=== PATIENT | female | born 1955 | race African-American/Black ===

== ENCOUNTER → 2016-09-28 | Outpatient (CLI) | payer MEDICARE, OTHER ==
[~2016-09-28] MED LIST: ATARAX25 MG PO; CELEXA 20MG20 MG/TAB PO; CELEXA20 MG PO; CEPHALEXIN500 M1 PO; DOXYCYCLINE 10100 MG PO; EUCERIN1 CRE TP; FLEXERIL 1010 MG/TAB PO; GLUCOPHAGE1000 MG PO; LEXAPRO20 MG PO; METFORMIN1000 MG PO; NAPROXEN 3375 MG/TAB PO; NASONEX SPRAY17 GM NS; NEURONTIN300 MG/CAP PO; NORCO 325 MG-51 TAB PO; PREDNISONE20 MG PO; PROVENTIL0.09 MG/A1 IH; RT ADVAIR 128 DISKUS IH; SINGULAIR 110 MG/TAB PO; SINGULAIR10 MG PO; ST. JOSEPH81 M2 PO; VENTOLIN0.09 MG IH; VITAMIN D31000 IU PO; VITAMIN D32000 IU PO; ZESTRIL 20MG TA20 MG PO; ZYRTEC 10MG; ZYRTEC 10MG10 MG PO; ZYRTEC10 M1 PO
== END ==
LOC: COL.RAD 11:42
DX: N95.0 Postmenopausal bleeding (principal)

== ENCOUNTER 2018-02-20 19:24 | Emergency (ER) | payer OTHER, MEDICARE ==
[~2018-02-20] VITALS: Ht 165.1 cm; Wt 128.2 kg
[2018-02-20 19:31] VITALS: TEMP 98.7
[2018-02-20 20:17] LABS: BASO % 0.2 % (0.0-2.0); EOS # 0.1 (0.0-0.7); EOS % 0.7 % (0-4.0); GRAN # 6.2 (1.4-6.5); HEMOGLOBIN 10.5 g/dl (12.5-16.0); LYMPH # 1.9 (1.2-3.4); LYMPH % 21.7 % (20.0-51.0); MEAN CELL VOLUME 79 fl (80.0-100.0); MEAN CORPUSCULAR HEMOGLOBIN 23 pg (27.0-31.0); MEAN CORPUSCULAR HGB CONC 30 g/dl (33.0-37.0); MONO # 0.6 (0.1-0.6); MONO % 7.1 % (1.7-9.3); PLATELET COUNT 342 K/mm3 (130-400); RED BLOOD COUNT 4.51 M/mm3 (4.10-5.30); REDCELL DISTRIBUTION WIDTH-CV 15.5 % (11.5-14.5)
[2018-02-20 20:20] LABS: HEMATOCRIT 35.4 % (37.0-47.0)
[2018-02-20 20:28] LABS: ALBUMIN 3.8 gm/dL (3.5-5.0); BILIRUBIN,TOTAL 0.1 mg/dL (0.0-1.0); CREATININE, serum 0.99 mg/dL (0.52-1.25); POTASSIUM 3.7 mmol/L (3.4-5.0); TOTAL PROTEIN 7.3 gm/dL (6.4-8.2)
[2018-02-20 22:02] LABS: COLLECTION METHOD CLEAN CATCH
[2018-02-20 22:10] LABS: MUCOUS Present /lpf; PH 5 (5-8); URINE APPEARANCE Clear; URINE BACTERIA Moderate /hpf; URINE BILIRUBIN Negative (NEGATIVE); URINE BLOOD Negative (NEGATIVE); URINE COLOR Yellow; URINE GLUCOSE Negative (NEGATIVE); URINE KETONE Negative (NEGATIVE); URINE LEUKOCYTE ESTERASE 2+ (NEGATIVE); URINE NITRATE Negative (NEGATIVE); URINE PROTEIN(semi-quant) Negative (NEGATIVE); URINE RBC 0-2 /hpf; URINE UROBILINOGEN Negative (NEGATIVE)
[2018-02-20] MEDS ORDERED: ZOFRAN ODT4 MG PO ×2 (22:16→22:39)
[2018-02-20] MEDS ORDERED: NORCO 325 MG-51 TAB PO (22:16)
[2018-02-20 22:19] VITALS: BP 136/80; PULSE 89
[2018-02-20] MEDS ORDERED: CIPRO 500MG TA500 MG PO ×2 (22:24→22:39)
== END 2018-02-20 22:49 | disposition home or self-care (01) ==
LOC: COL.ER 19:24
PROVIDERS: Physician Assistant
DX: S00.93XA Contusion of unspecified part of head, initial encounter (principal); S30.0XXA Contusion of lower back and pelvis, initial encounter; D64.9 Anemia, unspecified; N39.0 Urinary tract infection, site not specified; E11.9 Type 2 diabetes mellitus without complications; I10 Essential (primary) hypertension; J45.909 Unspecified asthma, uncomplicated; F32.9 Major depressive disorder, single episode, unspecified; F41.9 Anxiety disorder, unspecified; Z79.84 Long term (current) use of oral hypoglycemic drugs; Z79.51 Long term (current) use of inhaled steroids; V89.2XXA Person injured in unspecified motor-vehicle accident, traffic, initial encounter
CPT/HCPCS: J2060; J2405; J3010

== ENCOUNTER 2018-07-14 11:15 | Outpatient (RCR) | payer MEDICARE, OTHER ==
[~2018-07-14 11:15] MED LIST changes: +CIPRO 500MG TA500 MG PO; +ZOFRAN ODT4 MG PO
== END 2018-07-31 | disposition home or self-care (01) ==
LOC: WSPT
DX: M17.0 Bilateral primary osteoarthritis of knee (principal); M51.36 Other intervertebral disc degeneration, lumbar region
CPT/HCPCS: G8978-GP; G8979-GP

== ENCOUNTER 2018-08-18 16:30 | Outpatient (RCR) | payer MEDICARE, OTHER | END 2018-10-10 14:50 | disposition home or self-care (01) | LOC: WSPT 16:30 | DX: M17.0 Bilateral primary osteoarthritis of knee (principal); M53.9 Dorsopathy, unspecified ==

== ENCOUNTER 2018-10-07 11:48 | Inpatient (IN) | payer MEDICARE, OTHER ==
[~2018-10-07] VITALS: Ht 165.1 cm; Wt 123.3 kg
[2018-11-23] VITALS (10 sets, daily range): BP systolic 85–125; BP diastolic 44–65; PULSE 60–79; TEMP 97–98.7
[2018-11-23] MEDS ORDERED: CELEXA 20MG20 MG/TAB PO (06:16)
[2018-11-23] MEDS ORDERED: COLACE 100100 MG/CAP PO (06:17)
[2018-11-23] MEDS ORDERED: FLECTOR1.3% (06:18)
[2018-11-23] MEDS ORDERED: CARDIZEM CD 12120 MG PO (06:18)
[2018-11-23] MEDS ORDERED: MELAT3MGTAB PO (06:19)
[2018-11-23] MEDS ORDERED: MICARDIS20 MG PO (06:20)
[2018-11-23] MEDS ORDERED: INDERAL 10MG10 MG PO (06:22)
[2018-11-23] MEDS ORDERED: SINGULAIR 110 MG/TAB PO (06:22)
[2018-11-23] MEDS ORDERED: SYNTHROID0.05 MG/TA PO (06:23)
[2018-11-23] MEDS ORDERED: RESTORIL30 MG PO (06:24)
[2018-11-23] MEDS ORDERED: TIAZAC120 MG PO (06:25)
[2018-11-23] MEDS ORDERED: VOLTAREN GEL 1%1 TU TP (06:26)
[2018-11-23] MEDS ORDERED: ZANTAC 150MG T150 MG PO (06:27)
--- NOTE | 2018-11-23 11:25 | NUR ---
PT TO ROOM 328 VIA BED WITH BERNIE HULL BUILDER GIVING REPORT @1100. PT IS A/OX3 LUNGS CLEAR, BOWEL SOUNDS PRESENT. LEFT KNEE CDI WITH OCCLUSIVE DRESSING, CRYO CUFF AND CPM INPLACE OVER INCISION. PT HAS NO FEELING OR MOTOR CONTROLL BELOW HIPS AT THIS TIME. IV TO PUMP, SCDS AND TEDS BILATERALLY. VSS, FAMILY AT BEDSIDE.
--- NOTE | 2018-11-23 11:39 | NUR ---
PT LOOKING AT MENUE AND ORDERING LUNCH
--- NOTE | 2018-11-23 11:49 | NUR ---
DREAD met with patient and family about discharge planning. Patient reports she plans to return home and receive outpatiet PT at the [facility]. Patient's PCP is Dr Borjas on [address] and patient obtains prescriptions from [facility] or [address]. Patient has a walker for ambulations and a CPAP but does not use any other DME and she does not have home health services. Patient reports she does have a DPOA. SW does not anticipate any discharge needs.
--- NOTE | 2018-11-23 20:20 | NUR ---
Shift assessment complete. Pt resting in bed, awake, a&o, cooperative c cares. Pt c/o continued "bad" pain to L knee, rated "8/10"; PRN Lawrence admin per pt req. Pt also c/o brief period of nausea et scant amount of vomit, denies nausea at this time et denies need for antiemetic. Pt denies any other c/o. IV patent. LTK site noted, dressing per ortho C/D/I. Cryocuff et CPM in place. Vidal to DD. Pt denies further needs. Call light in reach, multiple family at bedside. Will monitor.
[2018-11-24 04:13] VITALS: BP 98/52; PULSE 68; TEMP 98.4
--- NOTE | 2018-11-24 05:29 | NUR ---
Pt resting in bed, condition unchanged. Pt has rested int c few needs. Cryocuff et CPM remain in place. Pain moderately well controlled c frequent pain vp emerging media upon request. Pt denies needs. Call light in reach, family remains at bedside.
--- NOTE | 2018-11-24 06:55 | NUR ---
bedside shift report received from CARLO Lopez
[2018-11-24 06:56] LABS: CALCIUM 8.5 mg/dL (8.4-10.2); CREATININE, serum 0.79 (0.52-1.25); POTASSIUM 4.6 mmol/L (3.4-5.0)
[2018-11-24 07:02] LABS: HEMOGLOBIN 9.3 g/dl (12.5-16.0)
[2018-11-24 07:39] VITALS: BP 102/60; PULSE 91; TEMP 99.1
[2018-11-24] MEDS ORDERED: ROXICODONE 55 MG/TAB PO (08:13)
[2018-11-24] MEDS ORDERED: NORCO 325 MG-7.1 TAB PO (08:13)
[2018-11-24] MEDS ORDERED: ASPI325T6 PO (08:13)
--- NOTE | 2018-11-24 08:20 | NUR ---
sitting up in bed eating breakfast, CPM stopped and off at this time,
--- NOTE | 2018-11-24 09:36 | NUR ---
physical therapy in and worked with darcie and she ambulated to door and then back to room and up in recliner, full assessment completed, have reviewed assessment completed by student and in agreement with that assessment
--- NOTE | 2018-11-24 10:30 | NUR ---
remains sitting up in chair visiting with family
--- NOTE | 2018-11-24 11:37 | NUR ---
First visit from the freezer operator. No needs right now.
--- NOTE | 2018-11-24 12:08 | NUR ---
NICOLE Gomez in to check on patient
--- NOTE | 2018-11-24 12:13 | NUR ---
c/o pain to left knee and medicated with roxicodone 10mg po, sitting up in chair eating lunch
--- NOTE | 2018-11-24 13:00 | NUR ---
ambulated out to [place] with physical therapy for group exercises
[2018-11-24 14:30] VITALS: BP 100/65; PULSE 86; TEMP 99
--- NOTE | 2018-11-24 17:15 | NUR ---
sitting up in bed eating supper, denies needs
--- NOTE | 2018-11-24 17:15 | NUR ---
assisted with ordering supper, otherwise denies needs
--- NOTE | 2018-11-24 18:30 | NUR ---
Patient is pleasent, resting in bed watching TV. Patient used IS x1. Patient has not had a BM. Patient stood with walker and stand by assistance. Bed in lowest position. Call light in reach. Reported off to Tasha MATOS.
[2018-11-24 19:44] VITALS: BP 105/72; PULSE 95; TEMP 100.1
[2018-11-24 20:45] VITALS: TEMP 99.9
[2018-11-24 23:28] VITALS: BP 111/62; PULSE 100; TEMP 99
--- NOTE | 2018-11-25 01:27 | NUR ---
Patient noted to have orbital edema to left side along with edema to left ear. Denies any trouble breathing. Temperature at 100.1 orally. Benadryl had been administered for this edema at 1830 with no relief. Patient and family had stating itching all day, and its noted she was administered Benadryl this morning as well. NICOLE Gibbons, notified about edema and temperature at 2044. Ordered to monitor edema and let him know if breathing troubles occur. Patient administered Benadryl at 2330 and temperature at 99.0. Denies breathing troubles. Patient resting currently with CPAP on and eyes closed. Edema continues to be present. Will monitor closely throughout the night.
[2018-11-25 04:52] VITALS: BP 104/51; PULSE 100; TEMP 99.2
--- NOTE | 2018-11-25 06:23 | NUR ---
Patient sitting up in recliner watching television. Orbital and left ear edema continues to be present. Benadryl given throughout the night with not much relief. States her ear feels tighter. No respiratory distress noted. Pain well controlled throughout the night. Denies any further needs. Will report off to day shift nurse.
[2018-11-25 08:22] VITALS: BP 104/60; PULSE 96; TEMP 98.8
[2018-11-25] MEDS ORDERED: PREDNISONE20 MG PO (09:13)
--- NOTE | 2018-11-25 10:07 | NUR ---
PT OUT TO [facility] FOR THERAPY PARTICIPATED AND THEN RETURNED TO ROOM. DR STEIN IN TO ROUND ON PATIENT, INFORMED HIM OF SWELLING OF LEFT EYE AND SYSTEMIC ITCHING. SEE MAR FOR NEW ORDERS.
--- NOTE | 2018-11-25 11:11 | NUR ---
Follow-up visit; Patient and her thanked Box Printing Machine Operator for stopping and wishing her well and God's blessings.
[2018-11-25 11:35] VITALS: BP 110/69; PULSE 99; TEMP 98.2
[2018-11-25 14:30] VITALS: BP 110/70; PULSE 86; TEMP 98.2
--- NOTE | 2018-11-25 15:35 | NUR ---
dressing change complete, discharge instructions provided to patient and family. Questions answered, pt taken to front via wheel chair.
== END 2018-11-25 16:08 | disposition home or self-care (01) | DRG 470 ==
LOC: JCC 11-23 05:19
PROVIDERS: Physician Assistant; ADMIT Orthopaedic Surgery
PROC: 0SRD0J9 Replacement of Left Knee Joint with Synthetic Substitute, Cemented, Open Approach (ICD-10-PCS; principal; 2018-11-23 07:30)
DX: M17.12 Unilateral primary osteoarthritis, left knee (principal); Z68.43 Body mass index [BMI] 50.0-59.9, adult; E66.01 Morbid (severe) obesity due to excess calories; I10 Essential (primary) hypertension; M06.9 Rheumatoid arthritis, unspecified; J45.909 Unspecified asthma, uncomplicated; E11.40 Type 2 diabetes mellitus with diabetic neuropathy, unspecified; E78.5 Hyperlipidemia, unspecified; G47.33 Obstructive sleep apnea (adult) (pediatric); Z87.891 Personal history of nicotine dependence; F41.8 Other specified anxiety disorders; F43.10 Post-traumatic stress disorder, unspecified; E03.9 Hypothyroidism, unspecified; I95.9 Hypotension, unspecified
CPT/HCPCS: 99223; 99231-AI; 99232-AI; A4314; A9284; C1776; J0690; J1815; J2250; J2405; J2704; J2920; J3010; J3370; J7030; J7040

== ENCOUNTER 2018-11-01 10:47 | Outpatient (RCR) | payer MEDICARE, OTHER | END 2018-11-02 17:11 | disposition home or self-care (01) | LOC: WSPT 10:47 | DX: M19.90 Unspecified osteoarthritis, unspecified site (principal) ==

== ENCOUNTER 2019-01-02 11:45 | Outpatient (RCR) | payer MEDICARE, OTHER ==
[~2019-01-02 11:45] MED LIST changes: +ASPI325T6 PO; +CARDIZEM CD 12120 MG PO; +COLACE 100100 MG/CAP PO; +FLECTOR1.3%; +INDERAL 10MG10 MG PO; +MELAT3MGTAB PO; +MICARDIS20 MG PO; +NORCO 325 MG-7.1 TAB PO; +RESTORIL30 MG PO; +ROXICODONE 55 MG/TAB PO; +SYNTHROID0.05 MG/TA PO; +TIAZAC120 MG PO; +VOLTAREN GEL 1%1 TU TP; +ZANTAC 150MG T150 MG PO
== END 2019-02-28 09:20 | disposition home or self-care (01) ==
LOC: WSPT 11:45
DX: M17.0 Bilateral primary osteoarthritis of knee (principal); Z96.652 Presence of left artificial knee joint

== ENCOUNTER 2019-04-27 13:45 | Outpatient (RCR) | payer MEDICARE, OTHER | END 2019-05-25 | disposition home or self-care (01) | LOC: WSPT | DX: M17.0 Bilateral primary osteoarthritis of knee (principal) ==

== ENCOUNTER 2021-03-06 15:01 | Emergency (ER) | payer MEDICARE, OTHER ==
[~2021-03-06] VITALS: Ht 165.1 cm; Wt 120.5 kg
[~2021-03-06 15:01] MED LIST changes: -FLECTOR1.3%; +FLECTOR1.3% TOP; +RESTORIL 1515 MG/CAP PO; -RESTORIL30 MG PO
[2021-03-06 15:45] VITALS: TEMP 98.8
[2021-03-06] MEDS ORDERED: CIPRODEX OT (16:02)
[2021-03-06 16:22] VITALS: BP 110/68; PULSE 80
== END 2021-03-06 16:22 | disposition home or self-care (01) ==
LOC: COL.ER 15:01
DX: H60.92 Unspecified otitis externa, left ear (principal); E11.9 Type 2 diabetes mellitus without complications; F32.9 Major depressive disorder, single episode, unspecified; J45.909 Unspecified asthma, uncomplicated; E07.9 Disorder of thyroid, unspecified; Z79.52 Long term (current) use of systemic steroids; Z79.899 Other long term (current) drug therapy; Z79.890 Hormone replacement therapy

== ENCOUNTER 2021-06-12 05:09 | Outpatient (RCR) | payer MEDICARE, OTHER ==
[2021-06-12] VITALS (12 sets, daily range): BP systolic 118–156; BP diastolic 72–89; PULSE 62–77; TEMP 98.4–99
[~2021-06-12] VITALS: Ht 165.1 cm; Wt 124.4 kg
[~2021-06-12 05:09] MED LIST changes: +CIPRODEX OT
[2021-06-12] MEDS ORDERED: FLONASE NASAL S16 GM NS (09:18)
[2021-06-12] MEDS ORDERED: ASPIRIN E.C. 8181 MG PO (09:18)
[2021-06-12] MEDS ORDERED: BENTYL 10MG10 MG/CAP PO (09:19)
[2021-06-12] MEDS ORDERED: VITAMIN C500 MG PO (09:19)
[2021-06-12] MEDS ORDERED: FLOVENT 220MCG7.9 GM IH (09:21)
[2021-06-12] MEDS ORDERED: PRIL40 PO (09:21)
[2021-06-12] MEDS ORDERED: INDERAL 10MG10 MG PO (09:21)
[2021-06-12] MEDS ORDERED: SYNTHROID0.075 MG/T PO (09:25)
--- NOTE | 2021-06-12 13:47 | NUR ---
Pt tolerated transfusion without issue. IV DC'd with catheter intact. Pt ambulates out from dept with steady gait using cane.
== END 2021-06-12 13:48 | disposition home or self-care (01) ==
LOC: EUO 05:09
DX: D50.9 Iron deficiency anemia, unspecified (principal)
CPT/HCPCS: J7050; P9016

== ENCOUNTER 2021-10-16 14:24 | Emergency (ER) | payer MEDICARE, OTHER ==
[~2021-10-16] VITALS: Ht 165.1 cm; Wt 118.2 kg
[~2021-10-16 14:24] MED LIST changes: +ASPIRIN E.C. 8181 MG PO; +BENTYL 10MG10 MG/CAP PO; +FLONASE NASAL S16 GM NS; +FLOVENT 220MCG7.9 GM IH; +PRIL40 PO; +SYNTHROID0.075 MG/T PO; +VITAMIN C500 MG PO
[2021-10-16 14:28] VITALS: BP 139/100; PULSE 67; TEMP 98.7
[2021-10-16] MEDS ORDERED: ILOTYCIN5 MG/GM OP (14:49)
== END 2021-10-16 15:00 | disposition home or self-care (01) ==
LOC: COL.ER 14:24
DX: H10.9 Unspecified conjunctivitis (principal)

== ENCOUNTER 2021-10-29 14:15 | Outpatient (RCR) | payer OTHER, MEDICARE ==
[~2021-10-29 14:15] MED LIST changes: +ILOTYCIN5 MG/GM OP
== END 2021-10-30 | disposition still patient (30) ==
LOC: WSPT
DX: M19.90 Unspecified osteoarthritis, unspecified site (principal)

== ENCOUNTER 2021-11-27 12:45 | Outpatient (RCR) | payer OTHER, MEDICARE | END 2021-11-29 | disposition home or self-care (01) | LOC: WSPT | DX: M19.90 Unspecified osteoarthritis, unspecified site (principal) ==

== ENCOUNTER 2021-12-15 15:45 | Outpatient (RCR) | payer MEDICARE, OTHER | END 2021-12-30 | disposition home or self-care (01) | LOC: WSC | DX: M19.90 Unspecified osteoarthritis, unspecified site (principal) ==

== ENCOUNTER 2022-01-28 09:00 | Outpatient (RCR) | payer MEDICARE, OTHER | END 2022-01-29 | disposition home or self-care (01) | LOC: WSPT | DX: M19.90 Unspecified osteoarthritis, unspecified site (principal) ==